=== PATIENT | female | born 1980 | race African-American/Black ===

== ENCOUNTER 2017-09-10 22:12 | Emergency (ER) | payer OTHER ==
[~2017-09-10] VITALS: Ht 162.6 cm; Wt 99.5 kg
[~2017-09-10 22:12] MED LIST: NONE REPORTED
[2017-09-11 00:58] VITALS: BP 134/81
[2017-09-11] MEDS ORDERED: IBUPROFEN 800MG TABLET PO ONE (02:00)
== END 2017-09-11 02:00 | disposition home or self-care (01) ==
LOC: ER 22:12
DX: S60.457A Superficial foreign body of left little finger, initial encounter (principal); F17.200 Nicotine dependence, unspecified, uncomplicated; X58.XXXA Exposure to other specified factors, initial encounter
CPT/HCPCS: 99283